=== PATIENT | female | born 1960 | race Caucasian/White ===

== ENCOUNTER 2019-03-11 02:51 | Observation (INO) | payer SELFPAY ==
[2019-03-11] MEDS ORDERED: AMLODIPINE BESYLATE 10 MG TABLET PO ONE (03:26)
[2019-03-11] MEDS ORDERED: METFORMIN HCL 500 MG TABLET PO ONE (03:26)
[2019-03-11] MEDS ORDERED: ALBUTEROL SULFATE 0.083% NEB 2.5 MG/3 ML AMPUL NEB ONE (03:26)
--- NOTE | 2019-03-11 03:37 | ER Document Report ---
ED General - General TRAVEL OUTSIDE OF THE [place] IN LAST 30 DAYS: No <OSCAR JOHANSEN - Last Filed: 03/11/19 06:17> <KATHERINE MADISON - Last Filed: 03/11/19 09:50> - General Chief Complaint: Sore Throat Stated Complaint: THROAT PAIN Time Seen by Provider: 03/11/19 03:20 Primary Care Provider: CHRISTI LYNN MD [ACTIVE STAFF] - Follow up in 3-5 days Notes: Patient is a 58-year-old female presents with complaint of recurrent coughing for 4 weeks. She says tonight she started to notice that she was felt to get stuck in her throat she was coughing and it would clear but then she would again feel as if something is stuck in her throat. She says she cannot bring up any phlegm with her cough. She denies any fevers. She also mentions that her blood sugars have been fluctuating a lot as she recently ran out of her metformin. She also ran out of her amlodipine as her blood pressures been running high. She has noticed some blurred vision. She says she sometimes will get intermittent blurred vision but today has been worse. She denies any headache. No chest pain. No abdominal pain. No focal weakness or numbness. No other complaints at this time. No fever. She recently moved to the area and does not yet have a primary care doctor. (OSCAR JOHANSEN) - Related Data Allergies/Adverse Reactions: Penicillins Allergy (Verified 03/11/19 02:57) Sulfa (Sulfonamide Antibiotics) Allergy (Verified 03/11/19 02:57) Past Medical History - Social History Smoking Status: Never Smoker Frequency of alcohol use: None Drug Abuse: None Family History: Reviewed & Not Pertinent <OSCAR JOHANSEN - Last Filed: 03/11/19 06:17> Review of Systems <OSCAR JOHANSEN - Last Filed: 03/11/19 06:17> - Review of Systems Notes: My Normal Review Basic REVIEW OF SYSTEMS: CONSTITUTIONAL : Denies fever, chills, or sweats. Denies recent illness. EENT: Current sensation of something stuck in her throat that will clear with coughing. CARDIOVASCULAR: Denies chest pain. RESPIRATORY: Current coughing. GASTROINTESTINAL: Denies abdominal pain. Denies nausea, vomiting, or diarrhea. GENITOURINARY: Denies difficulty urinating, painful urination, burning, frequency, or blood in urine. MUSCULOSKELETAL: Denies neck or back pain or joint pain or swelling. SKIN: Denies rash or skin lesions. NEUROLOGICAL: Denies altered mental status or loss of consciousness. Denies headache. Denies weakness or paralysis or loss of use of either side. Denies problems with gait or speech. Denies sensory or motor loss. ALL OTHER SYSTEMS REVIEWED AND NEGATIVE. (OSCAR JOHANSEN) Physical Exam <OSCAR JOHANSEN - Last Filed: 03/11/19 06:17> - Vital signs Vitals: Temp Pulse Resp BP Pulse Ox 98.7 F 97 22 H 187/92 H 94 03/11/19 02:56 03/11/19 02:56 03/11/19 02:56 03/11/19 02:56 03/11/19 02:56 - Notes Notes: General Appearance: Well nourished, alert, cooperative, no acute distress, no obvious discomfort. Well-appearing. She will cough on exam with patient's getting phlegm stuck in her throat and starting to hack. Vitals: reviewed, See vital signs table. Head: no swelling or tenderness to the head Eyes: PERRL, EOMI, Conjuctiva clear Mouth: No decreasd moisture Throat: No tonsillar inflammation, No airway obstruction, No lymphadenopathy Lungs: No wheezing, No rales, No rhonci, No accessory muscle use, good air exchange bilaterally. Heart: Normal rate, Regular rythm, No murmur, no rub Abdomen: Normal BS, soft, No rigidity, No abdominal tenderness, No guarding, no rebound, no abdominal masses, no organomegaly Extremities: good pulses in all extremities, no swelling or tenderness in the extremities, no edema. Skin: warm, dry, appropriate color, no rash Neuro: speech clear, oriented x 3, normal affect, responds appropriately to questions. (OSCAR JOHANSEN) Course - Laboratory Result Diagrams: 03/11/19 04:05 <OSCAR JOHANSEN - Last Filed: 03/11/19 06:17> - Laboratory Result Diagrams: 03/11/19 08:20 <KATHERINE MADISON - Last Filed: 03/11/19 09:50> - Re-evaluation Re-evalutation: 03/11/19 06:17 Patient is lung gonzales remain clear. She is in no distress and has no concerning findings on respiratory exam. Her only concerning findings that her blood sugars very high. She is not acidotic with it. We will continue try to give her insulin significant decrease her blood sugar to acceptable range such as below 350. If agreeable to this and I will discharge patient home with her prescription for medications. I have checked uppercase to Dr. Madison will follow up on her repeat Accu-Cheks. She may eventually require admission if her blood sugars are not responding to insulin and will not come down. Dictation of this chart was performed using voice recognition software; therefore, there may be some unintended grammatical errors. (OSCAR JOHANSEN) 03/11/19 09:49 Patient's blood sugar is still significantly elevated. Unlikely I am going to be able to get her under the parameters that Dr. Johansen was comfortable with. Of note her sodium was significantly low at 125 and it is still low at 130. This more likely,. I spoke with the hospitalist at this time am going to admit her for further treatment. (KATHERINE MADISON) - Vital Signs Vital signs: Temp Pulse Resp BP Pulse Ox 98.7 F 97 22 H 187/92 H 94 03/11/19 02:56 03/11/19 02:56 03/11/19 02:56 03/11/19 02:56 03/11/19 02:56 - Laboratory Laboratory results interpreted by me: 03/11/19 03/11/19 03/11/19 04:05 08:19 08:20 Sodium 125.3 L 130.9 L Chloride 82 L 91 L BUN 29 H 26 H Est GFR ( Amer) 55 L 59 L Est GFR (Non-Af Amer) 45 L 49 L Glucose 878 H* 571 H* POC Glucose 540 H* Discharge <OSCAR JOHANSEN - Last Filed: 03/11/19 06:17> - Discharge Admitting Provider: Yuliet (Hospitalist) Unit Admitted: [facility] <KATHERINE MADISON - Last Filed: 03/11/19 09:50> - Discharge Clinical Impression: Cough, Hyperglycemia, Hyponatremia Hypertension Qualifiers: Hypertension type: unspecified Qualified Code(s): I10 - Essential (primary) hypertension Condition: Good Disposition: ADMITTED OBSERVATION Additional Instructions: Please take your medications as prescribed. Please keep a close eye on your blood sugar. Please return to the ER if your blood sugar gets above 350 and is not responding to medications. Please avoid sugary foods. Please avoid any sof t drinks or sodas that have sugar in them. Please avoid sweet tea. Please arrange an appointment with a primary care doctor to establish herself and to continue your medications. Your chest x-ray today was negative. No evidence of pneumonia. Please return to ER if you have fevers or any difficulty breathing. Prescriptions: Amlodipine Besylate [Norvasc 10 mg Tablet] 10 mg PO DAILY #30 tablet Metformin HCl [Glucophage 500 mg Tablet] 1,000 mg PO BID #60 tablet
[2019-03-11] MEDS ORDERED: INSULIN REG, HUMAN 100 UNIT/ML 3 ML VIAL (PYX) SUBCUT ONE ×2 (03:43→06:12)
[2019-03-11 04:54] LABS: ANION GAP 16 (5-19); BLOOD UREA NITROGEN 29 mg/dL (7-20); CALCIUM 9.7 mg/dL (8.4-10.2); CARBON DIOXIDE 27 mmol/L (22-30); CHLORIDE 82 mmol/L (98-107); POTASSIUM 4.4 mmol/L (3.6-5.0); SODIUM 125.3 mmol/L (137-145)
[2019-03-11 05:04] LABS: GLUCOSE 878 mg/dL (75-110)
[2019-03-11] MEDS ORDERED: NORMAL SALINE 500 ML IV ONE ×2 (05:15→05:51)
--- NOTE | 2019-03-11 05:46 | RADIOLOGY REPORT (SQ) ---
EXAM DESCRIPTION: XR CHEST 2 VIEWS COMPLETED DATE/TME: 03/11/2019 03:26 CLINICAL HISTORY: 58 years, Female, cough Comparison: None FINDINGS: No focal lung consolidation. No pleural effusion. No pneumothorax. Cardiac and mediastinal silhouette is unremarkable. No acute osseous abnormality. Soft tissues are unremarkable. IMPRESSION: No acute findings. No focal lung consolidation.
[2019-03-11 08:56] LABS: ANION GAP 14 (5-19); BLOOD UREA NITROGEN 26 mg/dL (7-20); CALCIUM 8.9 mg/dL (8.4-10.2); CARBON DIOXIDE 26 mmol/L (22-30); CHLORIDE 91 mmol/L (98-107); SODIUM 130.9 mmol/L (137-145)
[2019-03-11 09:08] LABS: GLUCOSE 571 mg/dL (75-110)
[2019-03-11] MEDS ORDERED: GLUCAGON,HUMAN RECOMB 1 MG INJ IM PRN ×2 (09:51→10:20)
[2019-03-11] MEDS ORDERED: DEXTROSE 50%-WATER 25 GM/50 ML DISP.SYRIN IV PRN ×4 (09:51→10:20)
[2019-03-11] MEDS ORDERED: DEXTROSE 40% GEL 15 GM TUBE PO PRN ×4 (09:51→10:20)
[2019-03-11] MEDS ORDERED: INSULIN REG, HUMAN 100 UNIT/ML 3 ML VIAL (PYX) IV ONE (09:51)
[2019-03-11] MEDS ORDERED: PROMETHAZINE HCL INJ 25 MG/1 ML VIAL IV PRN (10:00)
[2019-03-11] MEDS ORDERED: NORMAL SALINE 1000 ML 1,000 ML IV PRN (10:00)
[2019-03-11] MEDS ORDERED: IPRATROPIUM/ALBUTEROL 0.5-2.5 MG/3 ML AMPUL NEB PRN (10:00)
[2019-03-11] MEDS ORDERED: HYDRALAZINE HCL INJ/PF 20 MG/1 ML SDV IV PRN (10:07)
[2019-03-11] MEDS ORDERED: NORMAL SALINE 100 ML with INSULIN REGULAR, HUMAN 100 UNIT IV PRN ×2 (10:20)
[2019-03-11 10:26] LABS: APPEARANCE,URINE TURBID; BILIRUBIN,URINE NEGATIVE (NEGATIVE); GLUCOSE, URINE >=500 mg/dL (NEGATIVE); KETONES,URINE NEGATIVE (NEGATIVE); LEUKOCYTE ESTERASE,URINE LARGE (NEGATIVE); NITRITE,URINE NEGATIVE (NEGATIVE); PROTEIN,URINE 100 mg/dL (NEGATIVE); URINE SPECIFIC GRAVITY 1.022; UROBILINOGEN,URINE NEGATIVE mg/dL (<2.0)
[2019-03-11 10:27] LABS: COLOR,URINE BROWN
[2019-03-11] MEDS ORDERED: FAMOTIDINE 20 MG TABLET PO ONE (15:00)
[2019-03-11] MEDS ORDERED: ENOXAPARIN SODIUM INJ 40 MG/0.4 ML DISP.SYRIN SUBCUT ONE (15:00)
[2019-03-11 15:32] LABS: ABSOLUTE EOSINOPHILS # (AUTO) 0.2 10^3/uL (0.0-0.6); ABSOLUTE MONOCYTES (AUTO) 0.8 10^3/uL (0.1-1.4); ABSOLUTE NEUT (AUTO) 6.8 10^3/uL (1.7-8.2); BASOPHILS % (AUTO) 0.3 % (0-2); HEMATOCRIT 37.5 % (36.0-47.0); HEMOGLOBIN 12.4 g/dL (12.0-15.5); LYMPHOCYTES % (AUTO) 19.9 % (13-45); MEAN CORPUSCULAR HEMOGLOBIN 25.2 pg (27.0-33.4); MEAN CORPUSCULAR VOLUME 77 fl (80-97); MONOCYTES % (AUTO) 7.8 % (3-13); PLATELET COUNT 268 10^3/uL (150-450); RED CELL DISTRIBUTION WIDTH 16.4 % (11.5-14.0); TOTAL CELLS COUNTED % (AUTO) 100 %; WHITE BLOOD COUNT 9.8 10^3/uL (4.0-10.5)
[2019-03-11 15:46] LABS: ANION GAP 11 (5-19); BLOOD UREA NITROGEN 28 mg/dL (7-20); CALCIUM 9.3 mg/dL (8.4-10.2); CARBON DIOXIDE 29 mmol/L (22-30); CHLORIDE 91 mmol/L (98-107); POTASSIUM 4.4 mmol/L (3.6-5.0); SODIUM 130.6 mmol/L (137-145)
[2019-03-11 15:53] LABS: GLUCOSE 505 mg/dL (75-110)
[2019-03-11] MEDS: FAMOTIDINE 20 MG TABLET PO SCH ×2 (15:54→21:14)
[2019-03-11] MEDS: ENOXAPARIN SODIUM INJ 40 MG/0.4 ML DISP.SYRIN SUBCUT SCH (15:54)
[2019-03-11] MEDS: LEVOFLOXACIN 500 MG TABLET PO SCH (16:03)
--- NOTE | 2019-03-11 18:54 | PDOC H&P ---
History of Present Illness Admission Date/PCP: 03/11/19 10:12 History of Present Illness: MIYA HERRING is a 58 year old female has medical history of hypertension, diabetes, nephrolithiasis status post lithotripsy, overactive bladder who recently moved from [place] does not have a PCP, run out of her medication. She is presenting to ED complaining of nonproductive, non-bloody cough, generalized weakness, blurry vision, polydipsia, polyuria, dysuria. Denies any fever, chills, nausea, vomiting, diarrhea, constipation. In ED she was found to have a blood glucose level of 878, sodium of 125. She was a started on IV fluids and insulin and hospitalist consulted for admission. Past Medical History Cardiac Medical History: Reports: Hypertension Pulmonary Medical History: Reports: Asthma Endocrine Medical History: Reports: Diabetes Mellitus Type 2 Social History Smoking Status: Never Smoker Family History Family History: Reviewed & Not Pertinent Parental Family History Reviewed: Yes Children Family History Reviewed: Yes Sibling(s) Family History Reviewed.: Yes Medication/Allergy Home Medications: Amlodipine Besylate [Norvasc 10 mg Tablet] 10 mg PO DAILY #30 tablet 03/11/19 Amlodipine Besylate [Norvasc 10 mg Tablet] 10 mg PO DAILY MDD FILLED 10/18 FOR 30 DAY SUPPLY 03/11/19 Aspirin [Ecotrin 81 mg EC Tablet] 81 mg PO DAILY 03/11/19 Cyanocobalamin (Vitamin B-12) [Vitamin B-12 SL 2500 mcg Tablet] 2,500 mcg SL DAILY 03/11/19 Losartan/Hydrochlorothiazide [Losartan-Hctz 50-12.5 mg Tab] 1 each PO DAILY 03/11/19 Metformin HCl [Glucophage 500 mg Tablet] 1,000 mg PO BID #60 tablet 03/11/19 Metformin HCl [Glucophage 500 mg Tablet] 1,000 mg PO BIDACBS MDD FILLED 11/02 FOR 30 DAY SUPPLY 03/11/19 Allergies/Adverse Reactions: Penicillins Allergy (Verified 03/11/19 02:57) Sulfa (Sulfonamide Antibiotics) Allergy (Verified 03/11/19 02:57) Review of Systems Review of Systems: as per hpi Physical Exam Vital Signs: Temp Pulse Resp BP Pulse Ox 98.2 F 97 28 H 136/61 H 94 03/11/19 09:47 03/11/19 02:56 03/11/19 17:02 03/11/19 17:02 03/11/19 17:01 Intake & Output 03/10/19 03/11/19 03/12/19 06:59 06:59 06:59 Intake Total 1000 15 Balance 1000 15 Weight 102.9 kg General appearance: PRESENT: no acute distress, morbidly obese, well-developed, well-nourished Head exam: PRESENT: atraumatic, normocephalic Eye exam: PRESENT: conjunctiva pink, EOMI, PERRLA. ABSENT: scleral icterus Ear exam: PRESENT: normal external ear exam Mouth exam: PRESENT: moist, tongue midline Neck exam: ABSENT: carotid bruit, JVD, lymphadenopathy, thyromegaly Respiratory exam: PRESENT: clear to auscultation kady. ABSENT: rales, rhonchi, wheezes Cardiovascular exam: PRESENT: RRR. ABSENT: diastolic murmur, rubs, systolic murmur Pulses: PRESENT: normal dorsalis pedis pul Vascular exam: PRESENT: normal capillary refill GI/Abdominal exam: PRESENT: normal bowel sounds, soft. ABSENT: distended, guarding, mass, organolmegaly, rebound, tenderness Rectal exam: PRESENT: deferred Extremities exam: PRESENT: full ROM. ABSENT: calf tenderness, clubbing, pedal edema Neurological exam: PRESENT: alert, awake, oriented to person, oriented to place, oriented to time, oriented to situation, CN II-XII grossly intact. ABSENT: motor sensory deficit Psychiatric exam: PRESENT: appropriate affect, normal mood. ABSENT: homicidal ideation, suicidal ideation Skin exam: PRESENT: dry, intact, warm. ABSENT: cyanosis, rash Results Laboratory Results: 03/11/19 15:18 03/11/19 15:18 03/11/19 03/11/19 03/11/19 04:05 08:20 09:50 WBC RBC Hgb Hct MCV MCH MCHC RDW Plt Count Seg Neutrophils % Lymphocytes % Monocytes % Eosinophils % Basophils % Absolute Neutrophils Absolute Lymphocytes Absolute Monocytes Absolute Eosinophils Absolute Basophils Sodium 125.3 L 130.9 L Potassium 4.4 4.0 Chloride 82 L 91 L Carbon Dioxide 27 26 Anion Gap 16 14 BUN 29 H 26 H Creatinine 1.21 1.14 Est GFR ( Amer) 55 L 59 L Est GFR (Non-Af Amer) 45 L 49 L Glucose 878 H* 571 H* Calcium 9.7 8.9 Urine Color BROWN Urine Appearance TURBID Urine pH 5.0 Ur Specific Wink 1.022 Urine Protein 100 H Urine Glucose (UA) >=500 H Urine Ketones NEGATIVE Urine Blood LARGE H Urine Nitrite NEGATIVE Ur Leukocyte Esterase LARGE H Urine WBC (Auto) >182 Urine RBC (Auto) 179 03/11/19 03/11/19 15:18 15:18 WBC 9.8 RBC 4.90 Hgb 12.4 Hct 37.5 MCV 77 L MCH 25.2 L MCHC 33.0 RDW 16.4 H Plt Count 268 Seg Neutrophils % 70.0 Lymphocytes % 19.9 Monocytes % 7.8 Eosinophils % 2.0 Basophils % 0.3 Absolute Neutrophils 6.8 Absolute Lymphocytes 2.0 Absolute Monocytes 0.8 Absolute Eosinophils 0.2 Absolute Basophils 0.0 Sodium 130.6 L Potassium 4.4 Chloride 91 L Carbon Dioxide 29 Anion Gap 11 BUN 28 H Creatinine 1.41 H Est GFR ( Amer) 46 L Est GFR (Non-Af Amer) 38 L Glucose 505 H* Calcium 9.3 Urine Color Urine Appearance Urine pH Ur Specific Wink Urine Protein Urine Glucose (UA) Urine Ketones Urine Blood Urine Nitrite Ur Leukocyte Esterase Urine WBC (Auto) Urine RBC (Auto) Impressions: Chest X-Ray 03/11/19 03:26 IMPRESSION: No acute findings. No focal lung consolidation. Assessment and Plan - Diagnosis (1) Hyperglycemia Is this a current diagnosis for this admission?: Yes Plan: Due to uncontrolled diabetes. Started on insulin drip to be transitioned to subcutaneous insulin. Acute Accu-Chek, diabetes diet. (2) UTI (urinary tract infection) Qualifiers: Urinary tract infection type: acute cystitis Is this a current diagnosis for this admission?: Yes Plan: Likely due to gram-negative rods including E. coli. Start on levofloxacin. Follow-up urine culture. (3) Diabetes mellitus, type II Is this a current diagnosis for this admission?: No Plan: Uncontrolled. Pending A1c. Diabetic diet, pre-meal insulin, Accu-Chek, long-acting insulin, sliding scale insulin. Outpatient PCP follow-up. (4) Hypertension Qualifiers: Hypertension type: unspecified Qualified Code(s): I10 - Essential (primary) hypertension Is this a current diagnosis for this admission?: No Plan: Start on hydralazine 10 mg p.o. daily. Continue PRN hydralazine. Adjust meds as needed. (5) Hyponatremia Is this a current diagnosis for this admission?: Yes Plan: Due to pseudohyponatremia most likely due to hyperglycemia. Improving. Continue normal saline. BMP every 6. Monitor for seizures. Goal of sodium correction 8 to 10 mEq within 24 hours. (6) STEFANIE (acute kidney injury) Is this a current diagnosis for this admission?: Yes Plan: Likely due to intravascular volume depletion due to severe hyperglycemia. Monitor volume status and electrolytes, replace as needed. BMP tomorrow. IV fluids guided by volume status. Pending urine protein, microalbumin.
[2019-03-11] MEDS: ACETAMINOPHEN 325 MG TABLET PO PRN (19:59)
[2019-03-11] MEDS: NORMAL SALINE 1000 ML 1,000 ML IV PRN (20:12)
[2019-03-11 21:12] LABS: ANION GAP 11 (5-19); BLOOD UREA NITROGEN 27 mg/dL (7-20); CALCIUM 9.5 mg/dL (8.4-10.2); CARBON DIOXIDE 28 mmol/L (22-30); CHLORIDE 94 mmol/L (98-107); GLUCOSE 195 mg/dL (75-110); POTASSIUM 3.6 mmol/L (3.6-5.0); SODIUM 133.1 mmol/L (137-145)
[2019-03-11 21:49] LABS: CHOLESTEROL 201.44 mg/dL (0-200); TRIGLYCERIDES 279 mg/dL (<150)
[2019-03-11 21:59] LABS: DIRECT LDL 134 mg/dL (<100)
[2019-03-11 22:03] LABS: VLDL CHOLESTEROL 55.8 mg/dL (10-31)
[2019-03-12 00:55] LABS: ANION GAP 10 (5-19); BLOOD UREA NITROGEN 29 mg/dL (7-20); CALCIUM 9.5 mg/dL (8.4-10.2); CARBON DIOXIDE 26 mmol/L (22-30); CHLORIDE 100 mmol/L (98-107); GLUCOSE 90 mg/dL (75-110); POTASSIUM 3.1 mmol/L (3.6-5.0); SODIUM 135.5 mmol/L (137-145)
[2019-03-12] MEDS: OXYCODONE-ACETAMINOPHEN 5-325 MG TABLET PO PRN ×2 (01:02→08:49)
[2019-03-12] MEDS: ONDANSETRON HCL INJ/PF 4 MG/2 ML SDV IV PRN ×3 (03:31→19:26)
[2019-03-12] MEDS: NORMAL SALINE 1000 ML 1,000 ML IV PRN ×2 (04:50→12:33)
[2019-03-12 06:57] LABS: HEMATOCRIT 36.3 % (36.0-47.0); HEMOGLOBIN 11.8 g/dL (12.0-15.5); MEAN CORPUSCULAR HEMOGLOBIN 25.1 pg (27.0-33.4); MEAN CORPUSCULAR HGB CONC 32.6 g/dL (32.0-36.0); MEAN CORPUSCULAR VOLUME 77 fl (80-97); PLATELET COUNT 255 10^3/uL (150-450); RED BLOOD COUNT 4.72 10^6/uL (3.72-5.28); RED CELL DISTRIBUTION WIDTH 16.4 % (11.5-14.0)
[2019-03-12 07:18] LABS: ANION GAP 11 (5-19); BLOOD UREA NITROGEN 29 mg/dL (7-20); CALCIUM 8.9 mg/dL (8.4-10.2); CARBON DIOXIDE 27 mmol/L (22-30); CHLORIDE 98 mmol/L (98-107); GLUCOSE 254 mg/dL (75-110); SODIUM 135.9 mmol/L (137-145)
[2019-03-12] MEDS ORDERED: POTASSIUM CHLORIDE 10 MEQ CAPSULE.ER PO ONE ×2 (08:48→09:30)
[2019-03-12] MEDS: INSULIN LISPRO 100 UNIT/ML 3 ML VIAL SUBCUT SCH ×6 (08:50→21:47)
[2019-03-12] MEDS: FAMOTIDINE 20 MG TABLET PO SCH ×2 (09:40→21:36)
[2019-03-12] MEDS: LEVOFLOXACIN 500 MG TABLET PO SCH (09:40)
[2019-03-12] MEDS: ENOXAPARIN SODIUM INJ 40 MG/0.4 ML DISP.SYRIN SUBCUT SCH (09:40)
[2019-03-12] MEDS ORDERED: GLUCAGON,HUMAN RECOMB 1 MG INJ IM PRN (11:45)
[2019-03-12] MEDS ORDERED: DEXTROSE 50%-WATER 25 GM/50 ML DISP.SYRIN IV PRN ×2 (11:45)
[2019-03-12] MEDS ORDERED: DEXTROSE 40% GEL 15 GM TUBE PO PRN ×2 (11:45)
--- NOTE | 2019-03-12 11:53 | PDOC PROGRESS REPORT ---
Subjective Progress Note for:: 03/12/19 Subjective:: MIYA HERRING is a 58 year old female has medical history of hypertension, diabetes, nephrolithiasis status post lithotripsy, overactive bladder who recently moved from [place] does not have a PCP, run out of her medication. She is presenting to ED complaining of nonproductive, non-bloody cough, generalized weakness, blurry vision, polydipsia, polyuria, dysuria. Denies any fever, chills, nausea, vomiting, diarrhea, constipation. In ED she was found to have a blood glucose level of 878, sodium of 125. She was a started on IV fluids and insulin and hospitalist consulted for admission. 03/12/2019. No acute events overnight, patient is off of insulin drip, hyponatremia has resolved, patient is complaining of improvement of her polyuria, polydipsia, dysuria, she is ambulatory, having normal bowel and bladder movements, p.o. tolerant. Denies any nausea, vomiting, diarrhea, constipation or any urinary symptoms. Reason For Visit: HYPERGLYCEMIA Physical Exam Vital Signs: Temp Pulse Resp BP Pulse Ox 97.8 F 72 20 131/71 H 95 03/12/19 11:11 03/12/19 11:11 03/12/19 11:11 03/12/19 11:11 03/12/19 11:11 Intake & Output 03/11/19 03/12/19 03/13/19 06:59 06:59 06:59 Intake Total 1000 1065 Balance 1000 1065 Weight 102.9 kg 103.3 kg General appearance: PRESENT: no acute distress, obese, well-developed, well- nourished Head exam: PRESENT: atraumatic, normocephalic Eye exam: PRESENT: conjunctiva pink, EOMI, PERRLA. ABSENT: scleral icterus Ear exam: PRESENT: normal external ear exam Mouth exam: PRESENT: moist, tongue midline Neck exam: ABSENT: carotid bruit, JVD, lymphadenopathy, thyromegaly Respiratory exam: PRESENT: clear to auscultation kady. ABSENT: rales, rhonchi, wheezes Cardiovascular exam: PRESENT: RRR. ABSENT: diastolic murmur, rubs, systolic murmur Pulses: PRESENT: normal dorsalis pedis pul Vascular exam: PRESENT: normal capillary refill GI/Abdominal exam: PRESENT: normal bowel sounds, soft. ABSENT: distended, guarding, mass, organolmegaly, rebound, tenderness Rectal exam: PRESENT: deferred Extremities exam: PRESENT: full ROM. ABSENT: calf tenderness, clubbing, pedal edema Neurological exam: PRESENT: alert, awake, oriented to person, oriented to place, oriented to time, oriented to situation, CN II-XII grossly intact. ABSENT: motor sensory deficit Psychiatric exam: PRESENT: appropriate affect, normal mood. ABSENT: homicidal ideation, suicidal ideation Skin exam: PRESENT: dry, intact, warm. ABSENT: cyanosis, rash Results Laboratory Results: 03/12/19 06:45 03/12/19 06:45 03/11/19 03/11/19 03/11/19 15:18 15:18 20:27 WBC 9.8 RBC 4.90 Hgb 12.4 Hct 37.5 MCV 77 L MCH 25.2 L MCHC 33.0 RDW 16.4 H Plt Count 268 Seg Neutrophils % 70.0 Lymphocytes % 19.9 Monocytes % 7.8 Eosinophils % 2.0 Basophils % 0.3 Absolute Neutrophils 6.8 Absolute Lymphocytes 2.0 Absolute Monocytes 0.8 Absolute Eosinophils 0.2 Absolute Basophils 0.0 Sodium 130.6 L 133.1 L Potassium 4.4 3.6 Chloride 91 L 94 L Carbon Dioxide 29 28 Anion Gap 11 11 BUN 28 H 27 H Creatinine 1.41 H 1.56 H Est GFR ( Amer) 46 L 41 L Est GFR (Non-Af Amer) 38 L 34 L Glucose 505 H* 195 H Calcium 9.3 9.5 Magnesium Triglycerides Cholesterol LDL Cholesterol Direct VLDL Cholesterol HDL Cholesterol 03/11/19 03/12/19 03/12/19 20:27 00:20 06:45 WBC 9.0 RBC 4.72 Hgb 11.8 L Hct 36.3 MCV 77 L MCH 25.1 L MCHC 32.6 RDW 16.4 H Plt Count 255 Seg Neutrophils % Lymphocytes % Monocytes % Eosinophils % Basophils % Absolute Neutrophils Absolute Lymphocytes Absolute Monocytes Absolute Eosinophils Absolute Basophils Sodium 135.5 L Potassium 3.1 L Chloride 100 Carbon Dioxide 26 Anion Gap 10 BUN 29 H Creatinine 1.84 H Est GFR ( Amer) 34 L Est GFR (Non-Af Amer) 28 L Glucose 90 Calcium 9.5 Magnesium Triglycerides 279 H Cholesterol 201.44 H LDL Cholesterol Direct 134 H VLDL Cholesterol 55.8 H HDL Cholesterol 29 L 03/12/19 06:45 WBC RBC Hgb Hct MCV MCH MCHC RDW Plt Count Seg Neutrophils % Lymphocytes % Monocytes % Eosinophils % Basophils % Absolute Neutrophils Absolute Lymphocytes Absolute Monocytes Absolute Eosinophils Absolute Basophils Sodium 135.9 L Potassium 4.0 Chloride 98 Carbon Dioxide 27 Anion Gap 11 BUN 29 H Creatinine 1.73 H Est GFR ( Amer) 36 L Est GFR (Non-Af Amer) 30 L Glucose 254 H Calcium 8.9 Magnesium 2.0 Triglycerides Cholesterol LDL Cholesterol Direct VLDL Cholesterol HDL Cholesterol Impressions: Chest X-Ray 03/11/19 03:26 IMPRESSION: No acute findings. No focal lung consolidation. Assessment and Plan - Diagnosis (1) UTI (urinary tract infection) Qualifiers: Urinary tract infection type: acute cystitis Is this a current diagnosis for this admission?: Yes Plan: Likely due to gram-negative rods including E. coli. Day #2 of levofloxacin. Follow-up urine culture. (2) Hyperglycemia Is this a current diagnosis for this admission?: Yes Plan: Improving. Due to uncontrolled diabetes. Off of insulin drip. Switched to subcutaneous insulin. Continue treatment for underlying diabetes. (3) Diabetes mellitus, type II Is this a current diagnosis for this admission?: No Plan: Uncontrolled. Hemoglobin A1c > 14%. Diabetic diet, pre-meal insulin, Accu-Chek, long-acting insulin, sliding scale insulin. And will need to be discharged on subcutaneous insulin as well as oral hypoglycemic. She needs to follow-up with PCP for readjustment of her insulin dosage and antidiabetics. (4) Hypertension Qualifiers: Hypertension type: unspecified Qualified Code(s): I10 - Essential (primary) hypertension Is this a current diagnosis for this admission?: No Plan: Improving. Continue amlodipine 10 mg p.o. daily. Continue PRN hydralazine. Adjust meds as needed. Switch to LYNN or ARB once kidney function back to normal. (5) Hyponatremia Is this a current diagnosis for this admission?: Yes Plan: Resolved. Most likely pseudohyponatremia due to hyperglycemia. (6) Hyperlipidemia Is this a current diagnosis for this admission?: Yes Plan: ASCVD > 25%. Start on high intensity statins. Patient PCP follow-up. Lifestyle modification advised. Patient needs to follow-up with PCP for LFT evaluation. (7) Morbid obesity with BMI of 40.0-44.9, adult Is this a current diagnosis for this admission?: Yes Plan: Diet and lifestyle modification advised. Outpatient PCP follow-up. Patient may benefit from bariatric intervention.
[2019-03-12 13:36] LABS: ANION GAP 9 (5-19); BLOOD UREA NITROGEN 28 mg/dL (7-20); CALCIUM 8.8 mg/dL (8.4-10.2); CARBON DIOXIDE 23 mmol/L (22-30); CHLORIDE 100 mmol/L (98-107); GLUCOSE 361 mg/dL (75-110); POTASSIUM 4.5 mmol/L (3.6-5.0)
[2019-03-12] MEDS ORDERED: INSULIN LISPRO 100 UNIT/ML 3 ML VIAL SUBCUT SCH (16:00)
[2019-03-12] MEDS ORDERED: FLUCONAZOLE 100 MG TABLET PO ONE (18:00)
[2019-03-12] MEDS: ACETAMINOPHEN 325 MG TABLET PO PRN (19:28)
[2019-03-12] MEDS ORDERED: INSULIN GLARGINE,HUM.REC.ANLOG 1,000 UNIT/10 ML VIAL SUBCUT SCH (22:00)
[2019-03-12] MEDS ORDERED: ATORVASTATIN CALCIUM 40 MG TABLET PO SCH (22:00)
[2019-03-13] MEDS: NORMAL SALINE 1000 ML 1,000 ML IV PRN (01:37)
[2019-03-13 06:02] LABS: ABSOLUTE EOSINOPHILS # (AUTO) 0.2 10^3/uL (0.0-0.6); ABSOLUTE LYMPHOCYTES (AUTO) 1.5 10^3/uL (0.5-4.7); ABSOLUTE MONOCYTES (AUTO) 0.6 10^3/uL (0.1-1.4); ABSOLUTE NEUT (AUTO) 4.6 10^3/uL (1.7-8.2); BASOPHILS % (AUTO) 0.2 % (0-2); HEMATOCRIT 35.4 % (36.0-47.0); HEMOGLOBIN 11.5 g/dL (12.0-15.5); LYMPHOCYTES % (AUTO) 21.4 % (13-45); MEAN CORPUSCULAR HEMOGLOBIN 25.2 pg (27.0-33.4); MEAN CORPUSCULAR HGB CONC 32.5 g/dL (32.0-36.0); MEAN CORPUSCULAR VOLUME 78 fl (80-97); MONOCYTES % (AUTO) 8.7 % (3-13); PLATELET COUNT 208 10^3/uL (150-450); RED BLOOD COUNT 4.57 10^6/uL (3.72-5.28); RED CELL DISTRIBUTION WIDTH 16.4 % (11.5-14.0); SEGMENTED NEUTROPHILS % (AUTO) 66.7 % (42-78); TOTAL CELLS COUNTED % (AUTO) 100 %
[2019-03-13 06:21] LABS: ANION GAP 5 (5-19); BLOOD UREA NITROGEN 19 mg/dL (7-20); CALCIUM 8.6 mg/dL (8.4-10.2); CARBON DIOXIDE 23 mmol/L (22-30); CHLORIDE 107 mmol/L (98-107); GLUCOSE 272 mg/dL (75-110); POTASSIUM 4.4 mmol/L (3.6-5.0); SODIUM 135.4 mmol/L (137-145)
[2019-03-13] MEDS ORDERED: INSULIN GLARGINE,HUM.REC.ANLOG 1,000 UNIT/10 ML VIAL SUBCUT ONE (09:00)
[2019-03-13] MEDS: INSULIN LISPRO 100 UNIT/ML 3 ML VIAL SUBCUT SCH ×6 (09:16→17:46)
[2019-03-13] MEDS: ENOXAPARIN SODIUM INJ 40 MG/0.4 ML DISP.SYRIN SUBCUT SCH (09:18)
[2019-03-13] MEDS: FAMOTIDINE 20 MG TABLET PO SCH (09:18)
[2019-03-13] MEDS: LEVOFLOXACIN 500 MG TABLET PO SCH (09:18)
[2019-03-13] MEDS ORDERED: ASPIRIN 81 MG TABLET, CHEWABLE PO SCH (10:00)
[2019-03-13] MEDS ORDERED: PROMETHAZINE HCL INJ 25 MG/1 ML VIAL IV PRN (13:00)
[2019-03-13] MEDS ORDERED: ONDANSETRON HCL INJ/PF 4 MG/2 ML SDV IV PRN (13:00)
[2019-03-13 17:19] VITALS: BP 90/38
[2019-03-14 12:37] LABS: CREATININE URINE 132.5 mg/dL (Not Estab.)
[2019-03-14 15:48] LABS: MICROALBUMIN URINE 452.2 ug/mL (Not Estab.)
--- NOTE | 2019-03-17 14:29 | PDOC DISCHARGE SUMMARY ---
General - Admit/Disc Date/PCP Admission Date/Primary Care Provider: 03/11/19 10:12 Discharge Date: 03/13/19 - Discharge Diagnosis (1) UTI (urinary tract infection) Is this a current diagnosis for this admission?: Yes (2) Hyperglycemia Is this a current diagnosis for this admission?: Yes (3) Diabetes mellitus, type II Is this a current diagnosis for this admission?: No (4) Hypertension Is this a current diagnosis for this admission?: No (5) Hyponatremia Is this a current diagnosis for this admission?: Yes (6) Hyperlipidemia Is this a current diagnosis for this admission?: Yes (7) Morbid obesity with BMI of 40.0-44.9, adult Is this a current diagnosis for this admission?: Yes (8) Vulvovaginitis dejon albicans Is this a current diagnosis for this admission?: Yes (9) STEFANIE (acute kidney injury) Is this a current diagnosis for this admission?: Yes - Additional Information Discharge Diet: Cardiac Discharge Activity: Activity As Tolerated, Balance Activity w/Rest Prescriptions: Atorvastatin Calcium [Lipitor 40 mg Tablet] 40 mg PO QHS 30 Days #30 tablet Hum Insulin NPH/Reg Insulin Hm [Insulin Inj 70-30 (100 Unit/1 ml) 3 ml Vial] 15 unit SUBCUT BID 30 Days #3 unit Losartan/Hydrochlorothiazide [Losartan-Hctz 50-12.5 mg Tab] 1 each PO DAILY 30 Days #30 tablet Metformin HCl [Glucophage] 1,000 mg PO BID 30 Days #60 tablet Home Medications: Aspirin [Ecotrin 81 mg EC Tablet] 81 mg PO DAILY 03/11/19 Cyanocobalamin (Vitamin B-12) [Vitamin B-12 SL 2500 mcg Tablet] 2,500 mcg SL DAILY 03/11/19 Atorvastatin Calcium [Lipitor 40 mg Tablet] 40 mg PO QHS 30 Days #30 tablet 03/13/19 Hum Insulin NPH/Reg Insulin Hm [Insulin Inj 70-30 (100 Unit/1 ml) 3 ml Vial] 15 unit SUBCUT BID 30 Days #3 unit 03/13/19 Losartan/Hydrochlorothiazide [Losartan-Hctz 50-12.5 mg Tab] 1 each PO DAILY 30 Days #30 tablet 03/13/19 Metformin HCl [Glucophage] 1,000 mg PO BID 30 Days #60 tablet 03/13/19 History of Present Illness History of Present Illness: MIYA HERRING is a 58 year old female has medical history of hy pertension, diabetes, nephrolithiasis status post lithotripsy, overactive bladder who recently moved from [place] does not have a PCP, run out of her medication. She is presenting to ED complaining of nonproductive, non-bloody cough, generalized weakness, blurry vision, polydipsia, polyuria, dysuria. Denies any fever, chills, nausea, vomiting, diarrhea, constipation. In ED she was found to have a blood glucose level of 878, sodium of 125. She was a started on IV fluids and insulin and hospitalist consulted for admission. Hospital Course Hospital Course: (1) UTI (urinary tract infection) Likely due to gram-negative rods including E. coli. Urine culture positive for lactobacillus (normal vaginal fidel) and Dejon. Received 3 days of levofloxacin. Asymptomatic at the time of discharge. (2) Hyperglycemia Due to underlying uncontrolled diabetes exacerbated by UTI. Initially she was started on insulin drip and transitioned to subcutaneous insulin. (3) Diabetes mellitus, type II Uncontrolled. Hemoglobin A1c > 14%. Started diabetic diet, pre-meal insulin, Accu-Chek, long-acting insulin, sliding scale insulin. Given a prescription for metformin to start 500 mg p.o. twice daily and increase to thousand milligrams p.o. twice daily as tolerated. Ideally patient could be discharged on Lantus and aspart however due to financial reason patient had to be discharged on 70/30 which is not ideal. Planning and diabetic education were consulted and patient received diabetic education and help with her medications. She was asked to follow-up with [facility] on 03/18/2019 at 3:30 PM. (4) Hypertension Controlled. Normotensive euvolemic. Initially was continued on amlodipine 10 mg p.o. and PRN hydralazine due to STEFANIE but switched ARB hydrochlorothiazide after STEFANIE improved (5) Hyponatremia Resolved. Most likely pseudohyponatremia due to hyperglycemia. (6) Hyperlipidemia ASCVD > 25%. Start on high intensity statins. Patient PCP follow-up. Lifestyle modification advised. Patient needs to follow-up with PCP for LFT evaluation. (7) Morbid obesity with BMI of 40.0-44.9, adult Diet and lifestyle modification advised. Outpatient PCP follow-up. Patient may benefit from bariatric intervention. (8) Vulvovaginitis dejon albicans Urine culture positive for Dejon have been contaminated vaginal fluid. Given 100 mg Diflucan x1. (9) STEFANIE (acute kidney injury) Prerenal failure. Most likely due to dehydration caused by excess polyuria due to hyperglycemia. Kidney function improved back to normal limits. Physical Exam Vital Signs: Temp Pulse Resp BP Pulse Ox 98.0 F 73 18 90/38 L 95 03/13/19 18:01 03/13/19 18:01 03/13/19 18:01 03/13/19 15:38 03/13/19 18:01 General appearance: PRESENT: morbidly obese Head exam: PRESENT: atraumatic, normocephalic Respiratory exam: PRESENT: clear to auscultation kady. ABSENT: rales, rhonchi, wheezes Cardiovascular exam: PRESENT: RRR. ABSENT: diastolic murmur, rubs, systolic murmur GI/Abdominal exam: PRESENT: normal bowel sounds, soft. ABSENT: distended, guarding, mass, organolmegaly, rebound, tenderness Extremities exam: PRESENT: full ROM. ABSENT: calf tenderness, clubbing, pedal edema Neurological exam: PRESENT: alert, awake, oriented to person, oriented to place, oriented to time, oriented to situation, CN II-XII grossly intact. ABSENT: motor sensory deficit Skin exam: PRESENT: dry, intact, warm. ABSENT: cyanosis, rash Results Laboratory Results: 03/13/19 05:45 03/13/19 05:45 Impressions: Chest X-Ray 03/11/19 03:26 IMPRESSION: No acute findings. No focal lung consolidation. Qualifiers - * PATIENT BEING DISCHARGED WITH ANY OF THE FOLLOWING DIAGNOSIS: No Acute Heart Failure - Is this a Heart Failure Patient?: No LVEF < 40%?: No- if no continue to question #3
== END 2019-03-13 18:30 | disposition home or self-care (01) ==
LOC: ER 02:51 → EH 10:12 → 3W 18:23
PROVIDERS: ADMIT Internal Medicine; ATTEND Internal Medicine
DX: N30.00 Acute cystitis without hematuria (principal); E11.65 Type 2 diabetes mellitus with hyperglycemia; I10 Essential (primary) hypertension; E87.1 Hypo-osmolality and hyponatremia; E78.5 Hyperlipidemia, unspecified; E66.01 Morbid (severe) obesity due to excess calories; Z68.41 Body mass index [BMI] 40.0-44.9, adult; B37.3 Candidiasis of vulva and vagina; N17.9 Acute kidney failure, unspecified; N32.81 Overactive bladder; R05 Cough; Z79.82 Long term (current) use of aspirin; Z79.899 Other long term (current) drug therapy; Z87.442 Personal history of urinary calculi
CPT/HCPCS: 94640; 99284; 96372; 96360; 82043; 82570; 36415 ×3; 87086; 82962 ×3; 83735 ×2; 84156; 85025 ×2; 85027; 80048 ×3; 81001; 83036; 80061; 71046; G0378 ×4; J1815 ×5; J1650 ×3; J2405; J7050; J7030 ×3; J7040

== ENCOUNTER → 2019-04-04 | Outpatient (CLI) | payer SELFPAY ==
[2019-04-04 15:27] LABS: ABSOLUTE EOSINOPHILS # (AUTO) 0.4 10^3/uL (0.0-0.6); ABSOLUTE LYMPHOCYTES (AUTO) 2.9 10^3/uL (0.5-4.7); ABSOLUTE MONOCYTES (AUTO) 0.5 10^3/uL (0.1-1.4); BASOPHILS % (AUTO) 0.2 % (0-2); EOSINOPHILS % (AUTO) 4.7 % (0-6); HEMATOCRIT 38.5 % (36.0-47.0); HEMOGLOBIN 12.5 g/dL (12.0-15.5); LYMPHOCYTES % (AUTO) 32.6 % (13-45); MEAN CORPUSCULAR HGB CONC 32.5 g/dL (32.0-36.0); MEAN CORPUSCULAR VOLUME 77 fl (80-97); MONOCYTES % (AUTO) 5.2 % (3-13); PLATELET COUNT 280 10^3/uL (150-450); RED BLOOD COUNT 5.02 10^6/uL (3.72-5.28); RED CELL DISTRIBUTION WIDTH 16.2 % (11.5-14.0); SEGMENTED NEUTROPHILS % (AUTO) 57.3 % (42-78); TOTAL CELLS COUNTED % (AUTO) 100 %; WHITE BLOOD COUNT 8.8 10^3/uL (4.0-10.5)
[2019-04-04 15:45] LABS: ANION GAP 11 (5-19); BLOOD UREA NITROGEN 17 mg/dL (7-20); CALCIUM 9.9 mg/dL (8.4-10.2); CARBON DIOXIDE 28 mmol/L (22-30); CHLORIDE 100 mmol/L (98-107); GLUCOSE 189 mg/dL (75-110); POTASSIUM 4.2 mmol/L (3.6-5.0); SODIUM 138.9 mmol/L (137-145)
== END ==
LOC: CCC 14:18
DX: I10 Essential (primary) hypertension (principal); E11.8 Type 2 diabetes mellitus with unspecified complications; D64.9 Anemia, unspecified
CPT/HCPCS: 36415; 80048; 85025

== ENCOUNTER → 2019-04-18 | Outpatient (CLI) | payer OTHER ==
[2019-04-18 18:05] LABS: IRON 43.3 ug/dL (37-170)
[2019-04-18 18:40] LABS: FERRITIN 76.4 ng/mL (11.1-264.0)
== END ==
LOC: CCC 16:30
DX: R71.8 Other abnormality of red blood cells (principal)
CPT/HCPCS: 36415; 82728; 83540; 84466

== ENCOUNTER 2020-02-24 03:51 | Emergency (ER) | payer OTHER ==
[2020-02-24 06:42] LABS: APPEARANCE,URINE TURBID; BILIRUBIN,URINE NEGATIVE (NEGATIVE); COLOR,URINE YELLOW; GLUCOSE, URINE NEGATIVE (NEGATIVE); KETONES,URINE NEGATIVE (NEGATIVE); LEUKOCYTE ESTERASE,URINE LARGE (NEGATIVE); NITRITE,URINE NEGATIVE (NEGATIVE); PROTEIN,URINE 100 mg/dL (NEGATIVE); URINE SPECIFIC GRAVITY 1.016; UROBILINOGEN,URINE NEGATIVE mg/dL (<2.0)
--- NOTE | 2020-02-24 07:05 | ER Document Report ---
ED General - General Chief Complaint: Other Stated Complaint: MD REFERRAL/UTI TREATMENT Time Seen by Provider: 02/24/20 06:59 Primary Care Provider: [facility] [NO LOCAL MD] - Follow up in 3-5 days Notes: 59-year-old lady with a history of staghorn kidney stone presents with 1 month of dysuria frequency malodorous urine. She has been to [facility] at least 3 times and they have done urine dips and cultures and she has been on 2 different antibiotics with no relief. She says that most recently they told her to come to the ER because she has some allergies to medications and they want her to get IV antibiotics. She does not have a fever is eating normally. She has no history of fistula vaginal discharge pelvic cancer diverticulitis or other complicating pelvic issue but does have an indwelling ureteral stent placed at [place] and has not seen them in years. Her recent urine grew out strep viridans so she was sent here for fear of endocarditis. TRAVEL OUTSIDE OF THE [place] IN LAST 30 DAYS: No - Related Data Allergies/Adverse Reactions: Penicillins Allergy (Verified 02/24/20 07:58) Sulfa (Sulfonamide Antibiotics) Allergy (Verified 02/24/20 07:58) Past Medical History - General Information source: Patient - Social History Smoking Status: Never Smoker Frequency of alcohol use: None Drug Abuse: None Family History: Reviewed & Not Pertinent Patient has homicidal ideation: No - Past Medical History Cardiac Medical History: Reports: Hx Hypertension Pulmonary Medical History: Reports: Hx Asthma Endocrine Medical History: Reports: Hx Diabetes Mellitus Type 2 Renal/ Medical History: Denies: Hx Peritoneal Dialysis Review of Systems - Review of Systems Notes: REVIEW OF SYSTEMS GEN: Denies fever, chills, weight loss ENT: Denies sore throat, nasal discharge, ear pain EYES: Denies blurry vision, eye pain, discharge CV: Denies chest pain, palpitations, edema RESP: Denies cough, shortness of breath, wheezing GI: Dysuria malodorous urine a MSK: Denies joint pain/swelling, edema, SKIN: Denies rash, skin lesions LYMPH: Denies swollen glands/lymph nodes NEURO: Denies headache, focal weakness or numbness, dizziness PSYCH: Denies depression, suicidal or homicidal ideation PHYSICAL EXAMINATION General: No acute distress, well-nourished Head: Atraumatic, normocephalic ENT: Mouth normal, oropharynx moist, no exudates or tonsillar enlargement Eyes: Conjunctiva normal, pupils equal, lids normal Neck: No JVD, supple, no guarding CVS: Normal rate, regular rhythm, no murmurs Resp: No resp distress, equal and normal breath sounds bilaterally GI: Nondistended, soft, no tenderness to palpation, no rebound or guarding Ext: No deformities, no edema, normal range of motion in upper and lower ext Back: No CVA or midline TTP Skin: No rash, warm Lymphatic: No lymphadeopathy noted Neuro: Awake, alert. Face symmetric. GCS 15. Physical Exam - Vital signs Vitals: Temp 98.3 F 02/24/20 04:02 Course - Re-evaluation Re-evalutation: 02/24/20 07:11 Patient presents with chronic UTI symptoms with indwelling stent Not sure I believe her results from the clinic, although she is still symptomatic after multiple courses of what sound like reasonable antibiotics. I will get a blood culture today repeat her urine culture, check a Noncon CT to rule out stent migration/new obstruction or hydronephrosis, then formulate an outpatient antibiotic regimen given her clinical stability and lack of sepsis and sent her back to [facility] for further work-up 02/24/20 08:43 Patient unfortunately on further investigation is suffering from pyelonephritis clearly based on her laboratory testing as well as having a retained stent which is calcified and anchored to a staghorn calculus proximal with acute hydroureter This is indication for a percutaneous tube, ongoing to cover her with antibiotic s hydrate her, make her n.p.o. discussed with urology from [facility]. Patient was stable in the ED. Discussed with Dr. Carty to [facility] from urology who is accepted the patient. He agrees with the plan as outlined above. 02/24/20 11:53 Reassess stable for transfer - Vital Signs Vital signs: Temp Pulse Resp BP Pulse Ox 98.0 F 71 20 145/66 H 96 02/24/20 11:46 02/24/20 11:46 02/24/20 11:46 02/24/20 11:46 02/24/20 11:46 - Laboratory Result Diagrams: 02/24/20 07:17 02/24/20 07:17 Laboratory results interpreted by me: 02/24/20 02/24/20 02/24/20 04:15 07:17 07:17 WBC 14.0 H MCV 73 L MCH 23.6 L RDW 17.3 H Eos % (Auto) 6.9 H Absolute Eos (auto) 1.0 H BUN 23 H POC Glucose Urine Protein 100 H Urine Blood LARGE H Ur Leukocyte Esterase LARGE H 02/24/20 11:07 WBC MCV MCH RDW Eos % (Auto) Absolute Eos (auto) BUN POC Glucose 140 H Urine Protein Urine Blood Ur Leukocyte Esterase Critical Care Note - Critical Care Note Total time excluding time spent on procedures (mins): 34 Comments: The above patient is critically ill. Not including procedures, but including direct re-evaluations, speaking with patient and/or consultants, interpreting results, and documenting, I spent the total amount of minute listed listed above on critical care time Discharge - Discharge Clinical Impression: Pyelonephritis, Staghorn calculus Condition: Fair Disposition: [facility] Instructions: Pyelonephritis ([facility]) Prescriptions: Ondansetron [Zofran Odt 4 mg Tablet] 1 - 2 tab PO Q4HP PRN #10 tab.rapdis PRN Reason: Nitrofurantoin Monohyd/M-Cryst [Macrobid 100 mg Capsule] 100 mg PO BID #20 cap [facility] [NO [facility]AL MD] - Follow up in 3-5 days
[2020-02-24 07:40] LABS: ABSOLUTE MONOCYTES (AUTO) 0.8 10^3/uL (0.1-1.4); ABSOLUTE NEUT (AUTO) 8.2 10^3/uL (1.7-8.2); BASOPHILS % (AUTO) 0.2 % (0-2); EOSINOPHILS % (AUTO) 6.9 % (0-6); HEMATOCRIT 37.3 % (36.0-47.0); HEMOGLOBIN 12.1 g/dL (12.0-15.5); LYMPHOCYTES % (AUTO) 28.6 % (13-45); MEAN CORPUSCULAR HEMOGLOBIN 23.6 pg (27.0-33.4); MEAN CORPUSCULAR HGB CONC 32.5 g/dL (32.0-36.0); MEAN CORPUSCULAR VOLUME 73 fl (80-97); MONOCYTES % (AUTO) 5.8 % (3-13); PLATELET COUNT 316 10^3/uL (150-450); RED BLOOD COUNT 5.14 10^6/uL (3.72-5.28); RED CELL DISTRIBUTION WIDTH 17.3 % (11.5-14.0); SEGMENTED NEUTROPHILS % (AUTO) 58.5 % (42-78); TOTAL CELLS COUNTED % (AUTO) 100 %
[2020-02-24] MEDS ORDERED: AZTREONAM INJ 1 GM VIAL IV ONE (08:07)
[2020-02-24] MEDS ORDERED: VANCOMYCIN HCL INJ 1000 MG VIAL IV ONE (08:07)
--- NOTE | 2020-02-24 08:18 | RADIOLOGY REPORT (SQ) ---
CT ABDOMEN AND PELVIS WITHOUT INTRAVENOUS CONTRAST: 02/24/2020 6:37 AM CDT HISTORY: 59-year old with flank pain, concern for calculi. COMPARISON: None available TECHNIQUE: Axial contiguous images were obtained from the lung bases to the proximal femurs without oral or intravenous contrast administered. Sagittal and coronal reconstructions were also obtained and reviewed. This exam was performed according to our departmental dose-optimization program, which includes automated exposure control, adjustment of the mA and/or KV according to the patient's size and/or use of iterative reconstruction technique. FINDINGS: The lung bases appear clear without evidence of a focal consolidative airspace opacity or effusions. Evaluation of the solid organs is limited by the lack of intravenous contrast. The visualized hepatic parenchyma is unremarkable. The gallbladder demonstrates nonspecific gallbladder wall thickening. The spleen, pancreas, and adrenals are normal in size and contour. There is mild left hydronephrosis with stranding around the left kidney. There are calculi seen at the left renal pelvis measuring at least 1.8 cm. This appears to encase the stent tip. There additional large calculi within the urinary bladder with a large calculus surrounding the urinary bladder. There is diffuse stranding seen within the left renal pelvis and ureter. Bladder is minimally distended, but grossly appears unremarkable. The uterus is present. The stomach is not well distended. The small bowel loops appear unremarkable. No pericolonic inflammatory stranding is seen. There are multiple diverticula seen within the sigmoid and descending colon, without evidence to suggest diverticulitis. The appendix appears unremarkable. There is no evidence of pneumoperitoneum or free fluid. The aorta and IVC appear normal in size. No significantly enlarged lymph nodes are seen in the abdomen or pelvis. Review of the bone show no evidence of any suspicious lytic or blastic lesions. IMPRESSION: There is a left ureteral stent with calcification seen proximally and distally encasing distended. There is prominence of the left renal pelvis is stranding seen around the left ureter and renal pelvis. This is likely due to a chronic ureteral stent which is not calcified and is likely obstructed. Superimposed infection is not fully excluded.
[2020-02-24] MEDS ORDERED: NORMAL SALINE 1000 ML 1,000 ML IV ONE (08:36)
[2020-02-24 09:01] LABS: ANION GAP 9 (5-19); BLOOD UREA NITROGEN 23 mg/dL (7-20); CALCIUM 9.5 mg/dL (8.4-10.2); CARBON DIOXIDE 27 mmol/L (22-30); CHLORIDE 103 mmol/L (98-107); GLUCOSE 105 mg/dL (75-110); POTASSIUM 4.1 mmol/L (3.6-5.0)
[2020-02-24 11:48] VITALS: BP 145/66
== END 2020-02-24 12:55 | disposition short-term general hospital (02) ==
LOC: ER 03:51
DX: N10 Acute pyelonephritis (principal); N20.0 Calculus of kidney; I10 Essential (primary) hypertension; E11.9 Type 2 diabetes mellitus without complications; Z87.442 Personal history of urinary calculi; Z88.0 Allergy status to penicillin; Z88.2 Allergy status to sulfonamides
CPT/HCPCS: 99285; 96365; 96367; 36415; 87040; 87086; 82962; 85025; 80048; 81001; 74176; J7030; J3370; J3490; 87088

== ENCOUNTER 2020-03-01 16:54 | Emergency (ER) | payer OTHER ==
--- NOTE | 2020-03-01 17:05 | ER Document Report ---
HPI - HPI Time Seen by Provider: 03/01/20 16:59 Notes: 59-year-old female patient presents the emergency department with complaints that her nephrostomy tube is not draining properly. She states that she was just discharged several days ago from [facility] after having the nephrostomy tube placed to the left kidney. She denies any other symptoms and states she is overall feeling well. She reports that she called her studio receptionist and they told her to come to the emergency department to have the tube flushed. Past Medical History - General Information source: Patient - Social History Smoking Status: Never Smoker Frequency of alcohol use: None Drug Abuse: None Family History: Reviewed & Not Pertinent - Past Medical History Cardiac Medical History: Reports: Hx Hypertension Pulmonary Medical History: Reports: Hx Asthma Endocrine Medical History: Reports: Hx Diabetes Mellitus Type 2 Renal/ Medical History: Denies: Hx Peritoneal Dialysis Past Surgical History: Reports: Hx Kidney (Renal Surgery) - Nephrostomy tube placed to left kidney Vertical Provider Document - CONSTITUTIONAL Notes: PHYSICAL EXAMINATION: GENERAL: Well-appearing, well-nourished and in no acute distress. HEAD: Atraumatic, normocephalic. EYES: Pupils equal round extraocular movements intact, conjunctiva are normal. ENT: Nares patent NECK: Normal range of motion LUNGS: No respiratory distress Musculoskeletal: Normal range of motion NEUROLOGICAL: Normal speech, normal gait. PSYCH: Normal mood, normal affect. SKIN: Nephrostomy tube placed to left flank area. No surrounding erythema. No drainage noted in the tube or bag. - INFECTION CONTROL TRAVEL OUTSIDE OF THE [place] IN LAST 30 DAYS: No Course - Re-evaluation Re-evalutation: Nephrostomy tube started draining on its own while in the emergency department. We did not need to flush it. Patient will be discharged home. Discharge - Discharge Clinical Impression: Nephrostomy status Condition: Good Disposition: HOME, SELF-CARE Instructions: Dehydration ([facility]) Additional Instructions: Keep well-hydrated to keep your urine clear in your nephrostomy unclog Call your urologist tomorrow Referrals: KRISHAN CASTLE FNP-C [Primary Care Provider] - Follow up as needed
--- NOTE | 2020-03-01 19:04 | ER Document Report ---
ED General - General Chief Complaint: Other Stated Complaint: TUBING ISSUES Time Seen by Provider: 03/01/20 16:59 Primary Care Provider: KRISHAN CASTLE FNP-C [Primary Care Provider] - Follow up as needed Notes: 59-year-old female with a recent transferred by me after having a clogged stent, for nephrostomy at outside hospital. Comes back because this morning she woke up and her nephrostomy bag was empty. Today she emptied it again after about 300 cc, and since arriving in the ED has had 3 more 100 cc out. She was seen in triage and there was concern for need for flush and replacement of the bag. On my exam the urine is flowing well, is slightly cloudy and the patient is dehydrated. She says that she has no fever.. TRAVEL OUTSIDE OF THE [place] IN LAST 30 DAYS: No - Related Data Allergies/Adverse Reactions: Penicillins Allergy (Verified 02/24/20 07:58) Sulfa (Sulfonamide Antibiotics) Allergy (Verified 02/24/20 07:58) Past Medical History - Social History Smoking Status: Never Smoker Family History: Reviewed & Not Pertinent Patient has homicidal ideation: No - Past Medical History Cardiac Medical History: Reports: Hx Hypertension Pulmonary Medical History: Reports: Hx Asthma Endocrine Medical History: Reports: Hx Diabetes Mellitus Type 2 Renal/ Medical History: Reports: Hx Kidney Stones. Denies: Hx Peritoneal Dialysis Past Surgical History: Reports: Hx Kidney (Renal Surgery) - nephrostomy tube placed 02/23 Review of Systems - Review of Systems Notes: REVIEW OF SYSTEMS GEN: Denies fever, chills, weight loss ENT: Denies sore throat, nasal discharge, ear pain EYES: Denies blurry vision, eye pain, discharge CV: Denies chest pain, palpitations, edema RESP: Denies cough, shortness of breath, wheezing GI: Denies abdominal pain, nausea, vomiting, diarrhea MSK: Denies joint pain/swelling, edema, SKIN: Denies rash, skin lesions LYMPH: Denies swollen glands/lymph nodes NEURO: Denies headache, focal weakness or numbness, dizziness PSYCH: Denies depression, suicidal or homicidal ideation PHYSICAL EXAMINATION General: No acute distress, well-nourished Head: Atraumatic, normocephalic ENT: Mouth normal, oropharynx moist, no exudates or tonsillar enlargement Eyes: Conjunctiva normal, pupils equal, lids normal Neck: No JVD, supple, no guarding CVS: Normal rate, regular rhythm, no murmurs Resp: No resp distress, equal and normal breath sounds bilaterally GI: Nondistended, soft, no tenderness to palpation, no rebound or guarding Ext: No deformities, no edema, normal range of motion in upper and lower ext Back: No CVA or midline TTP nephrostomy sutured in place. Tube appears normal. Cloudy urine is draining actively from the tubing of the bag. Skin: No rash, warm Lymphatic: No lymphadeopathy noted Neuro: Awake, alert. Face symmetric. GCS 15. Physical Exam - Vital signs Vitals: Temp Pulse Resp BP Pulse Ox 98.4 F 96 22 H 129/67 H 96 03/01/20 17:02 03/01/20 17:02 03/01/20 17:02 03/01/20 17:02 03/01/20 17:02 Course - Re-evaluation Re-evalutation: 03/01/20 19:04 Correct by nurse to see patient. I know this patient has a center for nephrostomy last week. She woke up this morning with an empty nephrostomy bag and but since has emptied it once about 300 cc again since being in the ED and straight about 200 cc. Urine is slightly darker. Patient seems dehydrated and has had much less oral intake today. No fever no pain no other issues. Nursing asking about replacing the back. As far as I can tell her nephrostomy is flowing, she is dehydrated, but there is no sign of infection dislodgment or clogging and I would rather not flush with sterile environment if we will have to. Stable for discharge. I have discussed with the patient there likely diagnosis, aftercare plan, follow-up plans and my usual and customary return precautions. They verbalized understanding of this - Vital Signs Vital signs: Temp Pulse Resp BP Pulse Ox 98.4 F 96 22 H 129/67 H 96 03/01/20 17:02 03/01/20 17:02 03/01/20 17:02 03/01/20 17:02 03/01/20 17:02 Discharge - Discharge Clinical Impression: Nephrostomy status Condition: Good Disposition: HOME, SELF-CARE Instructions: Dehydration ([facility]) Additional Instructions: Keep well-hydrated to keep your urine clear in your nephrostomy unclog Call your urologist tomorrow Referrals: KIRSHAN CASTLE FNP-C [Primary Care Provider] - Follow up as needed
[2020-03-01 19:19] VITALS: BP 138/55
== END 2020-03-01 19:20 | disposition home or self-care (01) ==
LOC: ER 16:54
DX: Z43.6 Encounter for attention to other artificial openings of urinary tract (principal); I10 Essential (primary) hypertension; E11.9 Type 2 diabetes mellitus without complications; Z88.0 Allergy status to penicillin; Z88.2 Allergy status to sulfonamides; Z87.442 Personal history of urinary calculi
CPT/HCPCS: 99283